=== PATIENT | female | born 1945 | race Caucasian/White ===

== ENCOUNTER 2017-08-25 14:50 | Emergency (ER) | payer BC ==
[~2017-08-25] VITALS: Ht 167.6 cm; Wt 81.6 kg
[2017-08-25 14:51] VITALS: BP_SYST 153
[2017-08-25 15:45] LABS: BASOPHILS # (AUTO) 0.1 K/uL (0.0-0.2); BASOPHILS % (AUTO) 0.7 % (0.0-2.0); EOSINOPHILS # (AUTO) 0.1 K/uL (0.0-0.4); EOSINOPHILS % (AUTO) 1.9 % (0.0-4.0); HEMATOCRIT 37.9 % (36-48); HEMOGLOBIN 12.4 g/dL (12.0-16.0); LYMPHOCYTES # (AUTO) 1.9 K/uL (1.0-5.5); LYMPHOCYTES % (AUTO) 26.8 % (20.5-51.5); MEAN CORPUSCULAR HEMOGLOBIN 30 pg (27-31); MEAN CORPUSCULAR HGB CONC 33 % (32-36); MEAN CORPUSCULAR VOLUME 93 fL (79.0-98.0); MONOCYTES # (AUTO) 0.4 K/uL (0.0-1.0); MONOCYTES % (AUTO) 5.6 % (1.7-9.3); NEUTROPHILS # (AUTO) 4.7 K/uL (1.8-7.7); PLATELET COUNT (AUTO) 404 K/uL (130-430); RED BLOOD CELL COUNT(AUTO) 4.08 MIL/uL (4.2-6.2); RED CELL DISTRIBUTION WIDTH 12.8 % (9.0-15.0); WHITE BLOOD COUNT (AUTO) 7.2 K/uL (4.8-10.8)
[2017-08-25] MEDS ORDERED: MAG HYDROX/AL HYDROX/SIMETH 30 ML, BELLADONNA ALKALOIDS/PHENOBARB 10 ML, LIDOCAINE VISC... PO ONE ×3 (15:45)
[2017-08-25 15:52] LABS: ANION GAP 12 (5-15); CALCIUM 9.6 mg/dL (8.4-11.0); CHLORIDE 105 mmol/L (98-107); CREATININE 1.04 mg/dL (0.55-1.30); GLUCOSE 111 mg/dL (70-99); POTASSIUM 3.7 mmol/L (3.5-5.1); SODIUM SERUM 142 mmol/L (136-145); UREA NITROGEN, BLOOD 14 mg/dL (8-21)
[2017-08-25 15:53] LABS: GFR AFRICAN AMERICAN 67 mL/min (>90)
[2017-08-25 15:59] LABS: ALANINE AMINOTRANSFERASE 21 U/L (12-78); ALBUMIN 4.1 g/dL (3.4-4.8); ASPARTATE AMINOTRANSFERASE 21 U/L (10-37); LIPASE 85 U/L (73-393); TOTAL BILIRUBIN 0.5 mg/dL (0.0-1.0)
[2017-08-25 16:31] LABS: BILIRUBIN,URINE NEGATIVE (NEGATIVE); BLOOD, URINE TRACE (NEGATIVE); CLARITY/URINE CLEAR (CLEAR); COLOR,URINE AMBER (YELLOW); GLUCOSE,URINE NEGATIVE (NEGATIVE); KETONES,URINE 1+ (NEGATIVE); LEUKOCYTE ESTERASE ,URINE NEGATIVE (NEGATIVE); NITRITE, URINE NEGATIVE (NEGATIVE); PH,URINE 5.5 (5.0-8.0); PROTEIN URINE NEGATIVE (NEGATIVE); UROBILINOGEN,URINE 0.2 (0.2-1.0)
[2017-08-25 16:32] LABS: BACTERIA,URINE FEW /HPF (None Seen); RBC,URINE 0-3 /HPF (0-3); WBC,URINE 0-3 /HPF (0-3)
[2017-08-25 16:33] LABS: MUCUS,URINE 1+ /LPF (None Seen)
[2017-08-25 16:55] VITALS: BP_SYST 160
== END 2017-08-25 16:55 | disposition home or self-care (01) ==
LOC: SED 14:50
DX: K21.9 Gastro-esophageal reflux disease without esophagitis (principal); R03.0 Elevated blood-pressure reading, without diagnosis of hypertension; F32.9 Major depressive disorder, single episode, unspecified; Z90.89 Acquired absence of other organs; Z90.710 Acquired absence of both cervix and uterus
CPT/HCPCS: 36415; 74000; 80053; 81000; 83690; 84484; 85025; 93005; 99285; J2001

== ENCOUNTER 2019-08-13 15:37 | Emergency (ER) | payer BC ==
[~2019-08-13] VITALS: Ht 167.6 cm; Wt 83.9 kg
[2019-08-13 15:37] VITALS: BP_SYST 160
--- NOTE | 2019-08-13 15:45 | NUR ---
BROUGHT BACK TO BED #7 AND TRIAGED. REPORT GIVEN TO JORDAN
--- NOTE | 2019-08-13 16:05 | NUR ---
Patient is awake, alert, and oriented x4. Patient is complaining of sharp right lower back pain that radiates down her right leg since this morning, states she is unable to walk due to pain. Patient reports taking norco 10-325 at 0700 when it started and another at 1400. Patient then drove in to ER. Patient is also complaining of intermittent sharp pain under her left breast, having 2 episodes lasting 5-10 seconds going from 0 to 8 while she's been here. She denies nausea, vomiting, diarrhea, SOB.
--- NOTE | 2019-08-13 16:52 | NUR ---
Patient transported to radiology via gurney, accompanied by pump house technician.
--- NOTE | 2019-08-13 17:00 | NUR ---
Returned from radiology, back to [facility]. Patient could not tolerate position.
--- NOTE | 2019-08-13 17:05 | NUR ---
Patient transported to radiology via wheelchair, accompanied by component technician.
[2019-08-13 18:05] VITALS: BP_SYST 154
--- NOTE | 2019-08-13 18:05 | NUR ---
Patient given written and verbal discharge instructions and verbalizes understanding. ER MD discussed with patient the results and treatment provided. Patient in stable condition. ID arm band removed. Patient educated on pain management and to follow up with PMD. Pain Scale 0/10. Opportunity for questions provided and answered. Medication side effect fact sheet provided.
== END 2019-08-13 18:05 | disposition home or self-care (01) ==
LOC: SED 15:37
DX: M54.40 Lumbago with sciatica, unspecified side (principal); R03.0 Elevated blood-pressure reading, without diagnosis of hypertension; F32.9 Major depressive disorder, single episode, unspecified
CPT/HCPCS: 72100-TC; 99283